=== PATIENT | male | born 1965 | race Caucasian/White ===

== ENCOUNTER → 2016-10-03 | Outpatient (REF) | payer OTHER ==
[~2016-10-03] MED LIST: MAPA325T2 PO
[2016-10-03 18:24] LABS: PERCENT SATURATION 13.4 % (19.7-37.4)
[2016-10-03 18:31] LABS: FOLATE 14.5 NG/ML (>5.4)
== END ==
LOC: M LAB REF 17:14
PROVIDERS: ATTEND Internal Medicine Nephrology
DX: N18.9 Chronic kidney disease, unspecified (principal); D63.1 Anemia in chronic kidney disease

== ENCOUNTER → 2016-10-17 | Outpatient (CLI) | payer OTHER | LOC: M PT 13:45 | PROVIDERS: ATTEND Emergency Medicine | DX: Z89.511 Acquired absence of right leg below knee (principal) ==

== ENCOUNTER → 2016-10-23 | Outpatient (REF) | payer OTHER ==
[2016-10-23 12:10] LABS: ADD MORPHOLOGY? YES; BASO # 0.1 K/mm3 (0.0-0.2); EOS # 0.6 K/mm3 (0.0-0.50); EOS % 4.6 % (0.0-3.0); LARGE UNSTAINED CELL # 0.2 K/mm3 (0.0-0.4); LARGE UNSTAINED CELL % 1.7 % (0.0-4.0); LYMPH # 4.5 K/mm3 (1.5-4.5); LYMPH % 34.6 % (24.0-44.0); MEAN CORPUSCULAR HEMOGLOBIN 29.8 pg (27.0-33.0); MEAN CORPUSCULAR HGB CONC 33.4 g/dl (32.0-36.5); MONO # 0.6 K/mm3 (0.0-0.8); MONO % 5.1 % (0.0-5.0); NEUTROPHILS # 6.6 K/mm3 (1.8-7.7); NEUTROPHILS % 53.1 % (36.0-66.0); PLATELET COUNT, AUTOMATED 423 k/mm3 (150-450); RED CELL DISTRIBUTION WIDTH 21.6 % (11.5-14.5); WHITE BLOOD COUNT 12.4 K/mm3 (4.0-10.0)
[2016-10-23 12:25] LABS: ALBUMIN 3.3 GM/DL (3.2-5.2); ALBUMIN/GLOBULIN RATIO 1.03 (1.00-1.93); BILIRUBIN,TOTAL 0.2 MG/DL (0.2-1.0); CALCIUM LEVEL 9.2 MG/DL (8.5-10.1); CREATININE FOR GFR 1.51 MG/DL (0.70-1.30); GLOMERULAR FILTRATION RATE 52.1 (>56); PERCENT SATURATION 33.3 % (19.7-37.4); POTASSIUM SERUM 3.6 MEQ/L (3.5-5.1); TOTAL PROTEIN 6.5 GM/DL (6.4-8.2)
[2016-10-23 12:49] LABS: ANISOCYTOSIS 2+
== END ==
LOC: M LABDRAW1 11:32
PROVIDERS: ATTEND Emergency Medicine
DX: N18.4 Chronic kidney disease, stage 4 (severe) (principal); D63.1 Anemia in chronic kidney disease

== ENCOUNTER 2017-01-25 11:41 | Emergency (ER) | payer OTHER ==
[~2017-01-25] VITALS: Ht 170.2 cm; Wt 75.7 kg
[2017-01-25] MEDS ORDERED: ALBU17IN (11:55)
[2017-01-25] MEDS ORDERED: methylPREDNISolone INJ 125 MG/2 ML VIAL (J2930) IV ONE (12:45)
[2017-01-25 13:13] LABS: BASO # 0.1 K/mm3 (0.0-0.2); BASO % 0.8 % (0.0-1.0); EOS # 1.2 K/mm3 (0.0-0.50); EOS % 12.8 % (0.0-3.0); LARGE UNSTAINED CELL # 0.2 K/mm3 (0.0-0.4); LARGE UNSTAINED CELL % 2.2 % (0.0-4.0); LYMPH # 2.9 K/mm3 (1.5-4.5); LYMPH % 29.9 % (24.0-44.0); MEAN CORPUSCULAR HEMOGLOBIN 31.1 pg (27.0-33.0); MEAN CORPUSCULAR HGB CONC 34.5 g/dl (32.0-36.5); MEAN CORPUSCULAR VOLUME 90.1 fl (80.0-96.0); MONO # 0.6 K/mm3 (0.0-0.8); MONO % 6.5 % (0.0-5.0); NEUTROPHILS # 4.7 K/mm3 (1.8-7.7); NEUTROPHILS % 47.9 % (36.0-66.0); PLATELET COUNT, AUTOMATED 319 k/mm3 (150-450); RED CELL DISTRIBUTION WIDTH 13.6 % (11.5-14.5); WHITE BLOOD COUNT 9.8 K/mm3 (4.0-10.0)
[2017-01-25] MEDS ORDERED: ISOVUE-370 76% 100ML VIAL (Q9967) As Ordered ONE (13:38)
[2017-01-25] MEDS: IPRATROPIUM 0.5MG/ALBUTEROL 2.5MG INH SOL UD 3ML (DUONEB)(J7620) NEB PRN ×3 (13:39→14:24)
[2017-01-25 13:41] LABS: ANION GAP 5 MEQ/L (8-16); BLOOD UREA NITROGEN 19 MG/DL (7-18); CALCIUM LEVEL 9.2 MG/DL (8.5-10.1); CARBON DIOXIDE LEVEL 28 MEQ/L (21-32); CHLORIDE LEVEL 107 MEQ/L (98-107); CREATININE FOR GFR 1.45 MG/DL (0.70-1.30); GLOMERULAR FILTRATION RATE 54.6 (>56); GLUCOSE, FASTING 93 MG/DL (70-105); POTASSIUM SERUM 4.2 MEQ/L (3.5-5.1); SODIUM LEVEL 140 MEQ/L (136-145)
[2017-01-25 13:54] LABS: ABG BASE EXCESS 0.8 (-2.0-2.0); ABG HCO3 26.1 MEQ/L (22.0-26.0); ABG STANDARD HCO3 24.6 MEQ/L (22.0-26.0); ABG TOTAL CO2 27.4 MEQ/L (22.0-29.0); ABG pH (ARTERIAL) 7.391 UNITS (7.350-7.450)
[2017-01-25 13:58] LABS: ABG PARTIAL PRESSURE O2 41.5 mmHg (75.0-100.0)
[2017-01-25 14:23] LABS: ABG BASE EXCESS 0.1 (-2.0-2.0); ABG HCO3 24.1 MEQ/L (22.0-26.0); ABG PARTIAL PRESSURE CO2 36.8 mmHg (35.0-45.0); ABG PARTIAL PRESSURE O2 158.6 mmHg (75.0-100.0); ABG STANDARD HCO3 24.7 MEQ/L (22.0-26.0); ABG TOTAL CO2 25.2 MEQ/L (22.0-29.0); ABG pH (ARTERIAL) 7.434 UNITS (7.350-7.450)
--- NOTE | 2017-01-25 14:33 | REP ---
REASON: Dyspnea, possible pulmonary embolus. PRIORS: None. There is excellent visualization of the pulmonary arterial vasculature. There are no focal filling defects that would be considered consistent with pulmonary emboli. There is a mildly enlarged 1.1 cm sized right hilar lymph node. There is no left hilar or mediastinal adenopathy. There are no pleural or pericardial effusions. The imaged upper abdomen and the imaged osseous structures are within normal limits. Evaluation of the lung real shows no abnormal nodules, masses, or opacities. There is an incidental right upper lobe calcific granuloma. IMPRESSION: 1. There is no evidence of a pulmonary embolus. 2. Borderline to mildly enlarged nonspecific right hilar lymph node. Consider 3 month followup. 3. No evidence of pneumonia or other significant pulmonary parenchymal finding. Signed by Carmelo Alan DO 01/25/2017 03:08 P
[2017-01-25] MEDS ORDERED: PRED20TA PO (18:48)
[2017-01-25 19:02] VITALS: BP 144/86
--- NOTE | 2017-01-26 08:44 | ECGEPIP ---
Stationary ECG Study [facility] - ED Test Date: 2017-01-25 Pat Name: CARL MORENO Department: Room: - Gender: M Visual Merchandising Assistant: zohaib : 1965 Requested By: ANJALI Webber Order Number: [id number] Reading MD: Sherry Villanueva Measurements Intervals [place] Rate: 70 P: 3 OR: 161 QRS: -26 QRSD: 88 T: 10 QT: 408 QTc: 441 Interpretive Statements SINUS RHYTHM BORDERLINE LEFT AXIS DEVIATION POSSIBLE RIGHT VENTRICULAR CONDUCTION DELAY DECREASED RATE 09/18/16 Electronically Signed On 01-26-2017 8:44:45 EDT by Sherry Villanueva
--- NOTE | 2017-01-26 08:45 | ECGEPIP ---
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
--- NOTE | 2017-01-28 15:53 | ED PDOC ---
Post-Departure Follow-Up radiology report faxed to Sherry Pradhan MD January 28, 2017 15:53
== END 2017-01-25 19:52 | disposition home or self-care (01) ==
LOC: M ED 13:29
DX: R59.1 Generalized enlarged lymph nodes (principal); R06.02 Shortness of breath; N18.9 Chronic kidney disease, unspecified; F17.210 Nicotine dependence, cigarettes, uncomplicated
CPT/HCPCS: 36415; 36600; 71275; 80048; 82550; 82553; 82803; 83880; 85025; 87804; 93005; 93041; 94640; 96374; 99285; J2930; Q9967